=== PATIENT | male | born 1940 | race Caucasian/White ===

== ENCOUNTER 2017-08-16 23:36 | Emergency (ER) | payer BC, MEDICARE ==
[~2017-08-16] VITALS: Ht 182.9 cm; Wt 90.0 kg
[2017-08-16 23:37] VITALS: O2SAT 100
[2017-08-16 23:40] VITALS: O2SAT 100
[2017-08-16 23:45] VITALS: BP 70/41; PULSE 89; RESP 18; O2SAT 92
[2017-08-16] MEDS ORDERED: NOREPINEPHRINE-DEXTROSE DRIP 250 ML IV PRN (23:45)
[2017-08-16 23:50] VITALS: O2SAT 100
[2017-08-16 23:56] VITALS: BP 83/47; PULSE 97; RESP 18; O2SAT 100
[2017-08-17] MEDS ORDERED: TERBUTALINE INJ 1 MG/ML AMP SQ PRN
[2017-08-17] MEDS ORDERED: SODIUM CHLORIDE 0.9% FLUSH 10 ML FLUSH IVF PRN
[2017-08-17] MEDS ORDERED: NOREPINEPHRINE-DEXTROSE DRIP 250 ML IV PRN
[2017-08-17] MEDS ORDERED: SODIUM CHLOR 0.9% 1000 ML INJ 1,000 ML IV ONE ×2
[2017-08-17 00:01] VITALS: BP 87/48; PULSE 95; RESP 18; O2SAT 100
[2017-08-17 00:06] LABS: AUTOMATED NEUTROPHIL # 14.1 TH/MM3 (1.8-7.7); BASOPHIL # 0.1 TH/MM3 (0-0.2); BASOPHIL % 0.3 % (0.0-2.0); EOSINOPHIL % 0.2 % (0.0-4.0); HEMATOCRIT 23.8 % (39.0-51.0); HEMOGLOBIN 7.2 GM/DL (13.0-17.0); LYMPH % 11.8 % (9.0-44.0); MEAN CELL VOLUME 103.8 FL (80.0-100.0); MEAN CORPUSCULAR HEMOGLOBIN 31.5 PG (27.0-34.0); MEAN CORPUSCULAR HGB CONC 30.3 % (32.0-36.0); MEAN PLATELET VOLUME 9.8 FL (7.0-11.0); MONO % 5.1 % (0.0-8.0); MONOCYTE # 0.9 TH/MM3 (0-0.9); NEUT % 82.6 % (16.0-70.0); PLATELET COUNT 309 TH/MM3 (150-450); RED CELL DISTRIBUTION WIDTH 16.7 % (11.6-17.2)
[2017-08-17 00:12] VITALS: O2SAT 95
[2017-08-17 00:16] VITALS: BP_SYST 43; BP_SYST 75; BP_DIAS 19; BP_DIAS 38; PULSE 105; PULSE 41; RESP 18; RESP 6; O2SAT 52; O2SAT 95
[2017-08-17 00:17] LABS: INTERNATIONAL NORMALIZED RATIO 2.5 RATIO; PROTHROMBIN TIME - PATIENT 25.6 SEC (9.8-11.6)
[2017-08-17 00:20] VITALS: PULSE 0; RESP 0; O2SAT 0
--- NOTE | 2017-08-17 00:25 | RADRPT ---
EXAM DATE/TIME: 08/17/2017 00:05 [place] COMPARISON: No previous studies available for comparison. INDICATIONS : Status post cardiac arrest. Evaluate for ET tube and OG tube placements. MEDICAL HISTORY : Unobtainable. SURGICAL HISTORY : Unobtainable. ENCOUNTER: Initial ACUITY: 1 day PAIN SCORE: Non-responsive. LOCATION: chest FINDINGS: Bilateral pulmonary infiltrates are present, fairly diffuse on the right and basilar predominant on t he left. No large effusion demonstrated. No perceptible pneumothorax. Endotracheal tube tip is approximately 2.8 cm above the alia. There is a nasogastric tube with tip in the stomach, sidehole in the lower esophagus. Patient has had previous median sternotomy and right shoulder arthroplasty. Degenerative changes and chronic full-thickness rotator cuff tear seen of the left shoulder. CONCLUSION: 1. Bilateral pulmonary consolidation as above. 2. Endotracheal tube tip 2.8 cm above the alia. 3. Nasogastric tube tip in the upper stomach, sidehole just above the GE junction. Ramesh Butler MD on August 17, 2017 at 0:20 Board Certified Radiologist. This report was verified electronically.
[2017-08-17 00:26] LABS: ALBUMIN 1.5 GM/DL (3.4-5.0); BICARBONATE 14.7 MEQ/L (21.0-32.0); CALCIUM 7.1 MG/DL (8.5-10.1); CALCIUM-PROTEIN CORRECTED 8.2 MG/DL (8.5-10.1); CREATININE 2.44 MG/DL (0.60-1.30); MAGNESIUM 2.2 MG/DL (1.5-2.5); TOTAL BILIRUBIN ADULT 0.6 MG/DL (0.2-1.0); TOTAL PROTEIN 5.1 GM/DL (6.4-8.2); TROPONIN I 0.43 NG/ML (0.02-0.05)
[2017-08-17 00:38] LABS: BANDS 6 % (0-6); LYMPHOCYTES 7 % (9-44); METAMYELOCYTES 3 % (0-1); MONOCYTES 2 % (0-8); NEUTROPHIL # MANUAL DIFF 15.5 TH/MM3 (1.8-7.7); POLYS (SEG NEUTROPHILS) 81 % (16-70); PROMYELOCYTES 1 % (0-0)
[2017-08-17 00:40] LABS: ACANTHOCYTES 2+ (NORMAL)
--- NOTE | 2017-08-17 01:42 | PD ---
HPI Chief Complaint: Code Blue Time Seen by Provider: 23:46 Travel History International Travel<30 days: No Contact w/Intl Traveler<30days: No Traveled to known affect area: No History of Present Illness HPI 76-year-old male presents emergency department status post cardiac arrest. Patient was reported recovering at [facility]. EMS reports a staff working with him, came back 10 minutes later and found him unresponsive. They started CPR. On EMS presentation he was asystolic. They continued ACS protocol with epi, compressions, airway placement, and he continued to be asystolic. They actually called for asystole protocol terminate resuscitation but then found him to have return of spontaneous circulation. He was markedly hypotensive, 70/ 40, in route. They started dopamine. Patient is unable to provide any additional history. History Past Medical History Medical History: Unable to Obtain Tetanus Vaccination: Never Vaccinated Past Surgical History Surgical History: Unable to Obtain Social History Tobacco Use: No Allergies-Medications (Allergen,Severity, Reaction): Coded Allergies: Unable to Assess (Verified Allergy, Unknown, 08/16/17) Review of Systems ROS Limitations: Clinical Condition Physical Exam Narrative GENERAL: Obtunded pale 76-year-old man, clammy. SKIN: Cool and clammy HEAD: Atraumatic. Normocephalic. EYES: Pupils fixed and dilated. ENT: No nasal bleeding or discharge. Mucous membranes pink and moist. NECK: Trachea midline. No JVD. CARDIOVASCULAR: Weak carotid pulses. RESPIRATORY: Coarse breath sounds. No spontaneous respirations. ET tube in place. GASTROINTESTINAL: Abdomen soft, non-tender, nondistended. Hepatic and splenic margins not palpable. MUSCULOSKELETAL: No obvious deformities. Some edema peer NEUROLOGICAL: Obtunded. Data Data Last Documented VS Vital Signs Date Time Temp Pulse Resp B/P (MAP) Pulse Ox O2 Delivery O2 Flow Rate FiO2 08/17/17 00:20 0 0 0 08/17/17 00:16 Nasal Cannula 2.00 08/17/17 00:01 80 Orders Orders Electrocardiogram (08/16/17 23:46) Complete Blood Count With Diff (08/16/17 23:46) Comprehensive Metabolic Panel (08/16/17 23:46) Magnesium (Mg) (08/16/17 23:46) Prothrombin Time / Inr (Pt) (08/16/17 23:46) Act Partial Throm Time (Ptt) (08/16/17 23:46) Troponin I (08/16/17 23:46) Chest, Single Ap (08/16/17 23:46) Iv Access Insert/Monitor (08/16/17 23:46) Oximetry (08/16/17 23:46) Oxygen Administration (08/16/17 23:46) Sodium Chloride 0.9% Flush (Ns Flush) (08/17/17 00:00) Lactic Acid (08/16/17 23:46) Blood Culture (08/16/17 23:46) ^ Infusion (08/16/17 ) Norepinephrine-Dextrose Drip (Levophed-D (08/17/17 00:00) Terbutaline Inj (Brethine Inj) (08/17/17 00:00) Sodium Chlor 0.9% 1000 Ml Inj (Ns 1000 M (08/17/17 00:00) Sodium Chlor 0.9% 1000 Ml Inj (Ns 1000 M (08/17/17 00:00) Arterial Blood Gas (Abg) (08/16/17 ) Norepinephrine-Dextrose Drip (Levophed-D (08/16/17 23:45) Labs Laboratory Tests Test 08/16/17 23:50 White Blood Count 17.0 TH/MM3 Red Blood Count 2.30 MIL/MM3 Hemoglobin 7.2 GM/DL Hematocrit 23.8 % Mean Corpuscular Volume 103.8 FL Mean Corpuscular Hemoglobin 31.5 PG Mean Corpuscular Hemoglobin Concent 30.3 % Red Cell Distribution Width 16.7 % Platelet Count 309 TH/MM3 Mean Platelet Volume 9.8 FL Neutrophils (%) (Auto) 82.6 % Lymphocytes (%) (Auto) 11.8 % Monocytes (%) (Auto) 5.1 % Eosinophils (%) (Auto) 0.2 % Basophils (%) (Auto) 0.3 % Neutrophils # (Auto) 14.1 TH/MM3 Lymphocytes # (Auto) 2.0 TH/MM3 Monocytes # (Auto) 0.9 TH/MM3 Eosinophils # (Auto) 0.0 TH/MM3 Basophils # (Auto) 0.1 TH/MM3 CBC Comment AUTO DIFF Differential Total Cells Counted 100 Neutrophils % (Manual) 81 % Band Neutrophils % 6 % Lymphocytes % 7 % Monocytes % 2 % Neutrophils # (Manual) 15.5 TH/MM3 Metamyelocytes 3 % Promyelocytes 1 % Differential Comment FINAL DIFF MANUAL Platelet Estimate NORMAL Platelet Morphology Comment ENLARGED Crenated Cell 2+ Acanthocytes 2+ Prothrombin Time 25.6 SEC Prothromb Time International Ratio 2.5 RATIO Activated Partial Thromboplast Time 42.9 SEC Blood Urea Nitrogen 37 MG/DL Creatinine 2.44 MG/DL Random Glucose 250 MG/DL Total Protein 5.1 GM/DL Albumin 1.5 GM/DL Calcium Level 7.1 MG/DL Magnesium Level 2.2 MG/DL Alkaline Phosphatase 95 U/L Aspartate Amino Transf (AST/SGOT) 231 U/L Alanine Aminotransferase (ALT/SGPT) 73 U/L Total Bilirubin 0.6 MG/DL Sodium Level 147 MEQ/L Potassium Level 4.7 MEQ/L Chloride Level 115 MEQ/L Carbon Dioxide Level 14.7 MEQ/L Anion Gap 17 MEQ/L Estimat Glomerular Filtration Rate 26 ML/MIN Protein Corrected Calcium 8.2 MG/DL Troponin I 0.43 NG/ML MDM Medical Decision Making Medical Screen Exam Complete: Yes Emergency Medical Condition: Yes Differential Diagnosis Cardiac arrest, hypoxic encephalopathy, other Narrative Course Medical decision making 76-year-old male presents emerged from status post cardiac arrest. Based on his age, prolonged downtime, asystole presentation, patient markedly poor prognosis. I spoke to the patient's family including his son, Mendez, at phone number on the face sheet from the transfer center. Patient was started on nor epi in the ED, was given 2 L bolus. I completed a [id number] ultrasound to look for causes of PEA/asystolic arrest. No immediate cause was identified. After speaking with the family, reviewed the patient's prognosis which is Crow, his comorbidities, and the patient's wishes. They discussed amongst themselves and call back and decided the patient would not want to be kept alive on the circumstances. Decision was made to remove the breathing tube , turned off the vasopressors, and allow him to pass naturally. Patient passed naturally in the emergency department and was pronounced . Critical Care Narrative Aggregate critical care time was 40 minutes. Time to perform other separately billable procedures was not included in the critical care time. My time did not include minutes spent treating any other patients simultaneously or on activities that did not directly contribute to the patient's treatment. The services I provided to this patient were to treat and/or prevent clinically significant deterioration that could result in: , shock, worsening comorbidity, recognize goals of care. I provided critical care services requiring my management, as noted below: Chart data review, documentation time, medication orders and management, vital sign assessments/reviewing monitor data, ordering and reviewing lab tests, ordering and interpreting/reviewing x-rays and diagnostic studies, care of the patient and discussion of the patient with the admitting physicians. Procedures Procedure Narrative Faczz-do-geeg ultrasound: Crush type ultrasound was performed to evaluate for cause of hypotension. Pericardial view showed gisel pericardium without evidence of tamponade. No AAA on abdominal views. No free fluid in the abdomen. Diagnosis Primary Impression: Asystole Additional Impression: Cardiac arrest Dash Hernandez MD Aug 17, 2017 01:42
--- NOTE | 2017-08-17 10:29 | EKG ---
Date Performed: 08/16/2017 Time Performed: 23:51:04 PTAGE: 76 years EKG: ATRIAL FIBRILLATION INTRAVENTRICULAR CONDUCTION DELAY ABNORMAL ECG INTERPRETATION BASED ON A DEFAULT AGE OF 40 YEARS NO PREVIOUS TRACING ST segment depression is noted in the anterior leads. Consider anteri or ischemia. DOCTOR: Donta Vu Interpretating Date/Time 08/17/2017 10:28:41
== END 2017-08-17 02:37 | disposition expired ==
LOC: NEPE 23:36
DX: I46.9 Cardiac arrest, cause unspecified (principal); I48.91 Unspecified atrial fibrillation; R94.31 Abnormal electrocardiogram [ECG] [EKG]
CPT/HCPCS: 71045; 80053; 83735; 84484; 85007; 85027; 85610; 85730; 93005; 99291; J7030